=== PATIENT | female | born 2000 | race Caucasian/White ===

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

== ENCOUNTER 2021-12-17 09:03 | Emergency (ER) | payer OTHER ==
[~2021-12-17] VITALS: Ht 160 cm; Wt 66.8 kg
[2021-12-17] VITALS (12 sets, daily range): BP systolic 102–127; BP diastolic 63–82
[~2021-12-17 09:03] MED LIST changes: +FLEXERIL5 M1 PO; +IBUPROFEN600 MG PO
[2021-12-17 09:29] LABS: HEMATOCRIT 39.4 % (37.0-47.0); HEMOGLOBIN 13.2 g/dl (12.0-16.0); IMMATURE GRANULOCYTES 0.1 % (0.0-5.0); MEAN CELL VOLUME 89.1 fL CALC (80.0-100.0); MEAN CORPUSCULAR HGB 29.9 pG CALC (26.0-32.0); MEAN CORPUSCULAR HGB CONC 33.5 g/dL CAL (32.0-36.0); NEUT# 8.7 thou/uL (2.00-7.15); RED BLOOD COUNT 4.42 mill/uL (4.20-5.60); RED CELL DISTRI WIDTH 12.6 % (11.5-15.5)
[2021-12-17 09:44] LABS: ALBUMIN 4.4 g/dL (3.2-5.0); ALKALINE PHOSPHATASE 65 u/l (38-126); ANION GAP 13 (6-22 (CALC)); BILIRUBIN, TOTAL 0.6 mg/dL (0.0-1.4); BUN 15 mg/dL (7-17); BUN/CREATININE RATIO 25 (12-20 (CALC)); CARBON DIOXIDE 22 mmol/l (22-30); CHLORIDE 105 mmol/l (95-108); CREATININE 0.6 mg/dL (0.5-1.0); GFR FOR AFR.AMER. > 60 ML/MIN (>=60 (CALC)); GFR OTHER RACES > 60 ML/MIN (>=60 (CALC)); POTASSIUM 3.9 mmol/l (3.5-5.1); SGOT/AST 20 u/l (14-36); SODIUM 137 mmol/l (137-146); TOTAL PROTEIN 7.4 g/dL (6.3-8.2)
[2021-12-17 09:55] LABS: URINE BILIRUBIN - DIPSTICK NEGATIVE (NEGATIVE); URINE BLOOD DIPSTICK NEGATIVE (NEGATIVE); URINE COLOR YELLOW; URINE GLUCOSE - DIPSTICK NEGATIVE (NEGATIVE); URINE KETONE 40 mg/dL (NEGATIVE); URINE LEUK ESTERASE TRACE (NEGATIVE); URINE NITRITE - DIPSTICK NEGATIVE (Negative); URINE PROTEIN - DIPSTICK NEGATIVE (NEG-TRACE)
[2021-12-17] MEDS ORDERED: TAM75CAP PO ×2 (10:12→11:59)
[2021-12-17] MEDS ORDERED: PROMETHAZINE HY25 M1 PO ×2 (10:12→11:59)
== END 2021-12-17 12:16 | disposition home or self-care (01) ==
LOC: ED 09:03
PROVIDERS: Family Medicine
DX: O99.511 Diseases of the respiratory system complicating pregnancy, first trimester (principal); J11.1 Influenza due to unidentified influenza virus with other respiratory manifestations; Z20.822 Contact with and (suspected) exposure to COVID-19; Z3A.01 Less than 8 weeks gestation of pregnancy

== ENCOUNTER 2022-02-25 12:22 | Emergency (ER) | payer OTHER ==
[~2022-02-25] VITALS: Ht 160 cm; Wt 61.0 kg
[~2022-02-25 12:22] MED LIST changes: +PROMETHAZINE HY25 M1 PO; +TAM75CAP PO
[2022-02-25 12:33] VITALS: BP 118/73
[2022-02-25 12:46] LABS: URINE BILIRUBIN - DIPSTICK NEGATIVE (NEGATIVE); URINE BLOOD DIPSTICK TRACE-INTACT (NEGATIVE); URINE COLOR YELLOW; URINE GLUCOSE - DIPSTICK NEGATIVE (NEGATIVE); URINE KETONE >=80 mg/dL (NEGATIVE); URINE PROTEIN - DIPSTICK NEGATIVE (NEG-TRACE); URINE SPECIFIC GRAVITY >=1.030; URINE UROBILINOGEN - DIPSTICK 0.2 E.U./dL (0.2)
[2022-02-25 12:51] LABS: URINE LEUK ESTERASE SMALL (NEGATIVE); URINE NITRITE - DIPSTICK NEGATIVE (Negative); URINE RBC 0-2 RBC/hpf (0-5)
[2022-02-25 12:52] LABS: URINE BACTERIA FEW hpf; URINE EPITHELIAL CELLS MODERATE EPI/hpf (0-FEW)
[2022-02-25 13:43] LABS: HEMATOCRIT 32.8 % (37.0-47.0); HEMOGLOBIN 11.1 g/dl (12.0-16.0); IMMATURE GRANULOCYTES 0.2 % (0.0-5.0); MEAN CELL VOLUME 89.9 fL CALC (80.0-100.0); MEAN CORPUSCULAR HGB 30.4 pG CALC (26.0-32.0); MEAN CORPUSCULAR HGB CONC 33.8 g/dL CAL (32.0-36.0); NEUT# 8.14 thou/uL (2.00-7.15); RED BLOOD COUNT 3.65 mill/uL (4.20-5.60); RED CELL DISTRI WIDTH 12.9 % (11.5-15.5)
[2022-02-25 14:12] LABS: ALKALINE PHOSPHATASE 63 u/l (38-126); ANION GAP 15 (6-22 (CALC)); BUN 5 mg/dL (7-17); BUN/CREATININE RATIO 11 (12-20 (CALC)); CARBON DIOXIDE 18 mmol/l (22-30); CHLORIDE 105 mmol/l (95-108); CREATININE 0.5 mg/dL (0.5-1.0); GFR FOR AFR.AMER. > 60 ML/MIN (>=60 (CALC)); GFR OTHER RACES > 60 ML/MIN (>=60 (CALC)); POTASSIUM 3.9 mmol/l (3.5-5.1); SGOT/AST 25 u/l (14-36); SODIUM 134 mmol/l (137-146); TOTAL PROTEIN 6.5 g/dL (6.3-8.2)
[2022-02-25 14:17] LABS: BILIRUBIN, TOTAL 0.3 mg/dL (0.0-1.4)
[2022-02-25 14:42] LABS: BETA-HCG, QUANT(RESULT NUMBER) 64632 mIU/mL
[2022-02-25] MEDS ORDERED: CEPHALEXIN500 M1 PO (16:39)
== END 2022-02-25 16:53 | disposition home or self-care (01) ==
LOC: ED 12:22
PROVIDERS: Family Medicine
DX: O23.42 Unspecified infection of urinary tract in pregnancy, second trimester (principal); N39.0 Urinary tract infection, site not specified; Z3A.14 14 weeks gestation of pregnancy

== ENCOUNTER 2023-03-02 19:27 | Emergency (ER) | payer OTHER ==
[~2023-03-02] VITALS: Ht 160 cm; Wt 67.0 kg
[~2023-03-02 19:27] MED LIST changes: +CEPHALEXIN500 M1 PO
[2023-03-02] MEDS ORDERED: IBUPROFEN600 MG PO (19:54)
[2023-03-02] MEDS ORDERED: AMOX/K CLAV875 M1 PO (19:54)
[2023-03-02 20:13] VITALS: BP 122/75
== END 2023-03-02 20:19 | disposition home or self-care (01) ==
LOC: ED 19:27
DX: K02.9 Dental caries, unspecified (principal); F41.9 Anxiety disorder, unspecified